=== PATIENT | female | born 1970 | race Caucasian/White ===

== ENCOUNTER → 2016-07-28 | Outpatient (CLI) | payer OTHER ==
[~2016-07-28] MED LIST: ALBU1AER9 INH; AMT50 PO; BCTCR/30 EXT; BRVIN NEB; CLOM50TA6 PO; DILT120C68 PO; DOXY100C76 PO; FORM1NEB NEB; FURO-85 PO; GLC/500 PO; INSU100I SC; INSUINJ4 SQ; IPRASOL4 INH; LANS30CA12 PO; LISI-787 PO; LISI-788 PO; METO50TA16 PO; MOME200A INH; MORP1TAB11 PO; NVLGI7030 SC; ONDA4TAB46 PO; OXYC-57 PO; PRED20TA PO; PROC1TAB18 PO; RANI150T3 PO; SPRIN/30 INH; UMEC1INH INH; WARF4TAB43 PO; [UNRECOGNIZED DRUG - CODE] PO
--- NOTE | 2016-07-28 16:08 | DIAGNOSTIC IMAGING REPORT ---
CHEST 2 VIEWS ROUTINE CLINICAL HISTORY: Cough. COMPARISON STUDY: Chest radiograph August 12, 2015. FINDINGS: Lung volumes are normal. There is no pneumothorax or pleural effusion. No consolidation is identified. Linear left midlung opacity likely reflects atelectasis. Cardiac size is normal. Mediastinal contours are normal. Right infrahilar opacity is suggestive of atelectasis. There is no evidence of pulmonary edema. IMPRESSION: 1. No acute findings. 2. Linear bilateral opacities suggestive of atelectasis. Electronically signed by: Daniel Courtney M.D. 07/28/2016 4:06 PM Dictated Date/Time: 07/28/2016 4:06 PM
--- NOTE | 2016-07-28 16:09 | DIAGNOSTIC IMAGING REPORT ---
LEFT SHOULDER MIN 2 VIEWS ROUTINE CLINICAL HISTORY: Left shoulder pain COMPARISON: None. DISCUSSION: No fractures are visualized. There are no dislocations. There are no destructive changes. Degenerative changes are present within the AC joint. There is a tiny peritendinous calcification at the level of the greater tuberosity IMPRESSION: Degenerative changes within the AC joint. No acute fractures. Tiny peritendinous calcification near the level of the greater tuberosity. Electronically signed by: Twan Jauregui M.D. 07/28/2016 4:07 PM Dictated Date/Time: 07/28/2016 4:07 PM
[2016-07-28 17:14] LABS: ALT/SGPT 20 U/L (12-78); AST/SGOT 7 U/L (15-37); BLOOD UREA NITROGEN 13 mg/dl (7-18); BUN/CREATININE RATIO 16.9 (10-20); CALCIUM 9.1 mg/dl (8.5-10.1); CARBON DIOXIDE 26 mmol/L (21-32); CHLORIDE 102 mmol/L (98-107); CREATININE 0.77 mg/dl (0.60-1.20); GLUCOSE 202 mg/dl (70-99); SODIUM 138 mmol/L (136-145)
[2016-07-28 17:16] LABS: ALB/GLOB RATIO 0.9 (0.9-2); ALKALINE PHOSPHATASE 148 U/L (45-117)
== END | disposition home or self-care (01) ==
LOC: C.RAD 15:09
PROVIDERS: ATTEND Internal Medicine Pulmonary Disease
DX: R05 Cough (principal); R91.8 Other nonspecific abnormal finding of lung field; M19.012 Primary osteoarthritis, left shoulder; M75.32 Calcific tendinitis of left shoulder